=== PATIENT | male | born 1975 | race Caucasian/White ===

== ENCOUNTER 2022-09-11 16:52 | Inpatient (IN) ==
--- NOTE | 2022-09-11 17:07 | Emergency Department Note ---
SOB HPI General Chief Complaint: Shortness of Breath/Dyspnea Stated Complaint: SOB Time Seen by Provider: 09/11/22 17:04 Source: patient and EMS Mode of arrival: ambulatory Limitations: no limitations and physical limitation History of Present Illness HPI Narrative: Narrative: Patient is a 47-year-old male who comes into the emergency department today with chief complaint of shortness of breath and edema. Patient reports that he has had edema in the past and at one time was on diuretics but had stopped these a couple years ago. He does drink a sixpack of beer every day. He started noticing increased swelling and edema so he went to his primary care provider's office at [facility] and was prescribed diuretics 4 days ago. Patient reports that he started taking these last week but feels that the diuretics are not working and he has had increased edema where he is now feeling short of breath and significant swelling to the abdomen and scrotum. Patient reports that he is still voiding. He denies any chest pain. He has shortness of breath with lying flat. He denies any abdominal pain, nausea, vomiting, bleeding, melena, or hematochezia. He does report drinking 6 beers a day. He denies having any history of liver disease and has not been seen by a primary care very frequently in the past. He denies having any alcohol withdrawal symptoms. He reports having 2 beers today. Related Data Previous Rx's Medication Instructions Recorded albuterol sulfate 90 mcg/actuation 2 puff inhalation .q4-6h PRN 06/17/21 aerosol inhaler (ProAir HFA) cough, shortness of breath, wheezing #8.5 grams azithromycin 250 mg tablet See Rx Instructions PO Q24H #6 tabs 06/17/21 Allergies Allergy/AdvReac Type Severity Reaction Status Date / Time No Known Drug Allergies Allergy Verified 09/11/22 16:53 Review of Systems ROS ROS Narrative: Narrative: All systems ED: reviewed and negative except as stated. [facility] Narrative Patient History Narrative: Narrative: Medical/Surgical/Family History All Active Problems (Updated 09/11/22 @ 20:24 by ENRIQUE Richardson) SOB (shortness of breath) (Acute) D-dimer, elevated (Acute) Edema (Acute) Alcoholic liver disease, unspecified (Acute) Viral syndrome (Acute) Bronchitis (Acute) Medical History Bronchitis Viral syndrome Social History Smoking Status: Never smoker Exam Narrative Narrative: Narrative: General Limitations: no limitations and physical limitation General appearance: Present alert and obese Eye Eye: Present scleral icterus and periorbital swelling ENT ENT: Present normal oropharynx and mucous membranes moist Respiratory Respiratory: Present rales/crackles (all lobes); Absent respiratory distress Cardiovascular Cardiovascular: Present regular rate, normal rhythm, normal heart sounds and JVD Adbominal Abdominal: Present rigidity and ascites; Absent tenderness : Present other (Significant swelling to the scrotum and penis.) Extremities Extremities: Present other (4+ edema upper and lower extremities.) Neurological Neurological: Present alert and oriented X3 Psychiatric Psychiatric: Present normal affect and normal mood Skin Skin: Present warm (WNL), dry and normal color Course Vital Signs Vital signs: Vital Signs Temperature 96.5 F L 09/11/22 16:53 Pulse Rate 91 H 09/11/22 16:53 Respiratory Rate 33 H 09/11/22 16:53 Blood Pressure 154/100 09/11/22 16:53 Pulse Oximetry (%) 96 09/11/22 16:53 Oxygen Delivery Method 09/11/22 16:53 Temperature 96.5 F L 09/11/22 16:53 Pulse Rate 88 09/11/22 19:46 Respiratory Rate 13 09/11/22 20:01 Blood Pressure 140/106 09/11/22 20:01 Pulse Oximetry (%) 91 09/11/22 20:01 Oxygen Delivery Method 09/11/22 16:53 MDM MDM Narrative Medical decision making narrative: Narrative: Patient is a 47-year-old male who presents to the emergency department with significant edema. He does not have any hypoxia or requiring any O2, however is having orthopnea and when lying flat that he does feel short of breath and not able to lay down. He was started on diuretic by his primary care earlier this week but has failed outpatient therapy. Today proceeded with labs, chest x-ray, abdominal ultrasound. His CBC is consistent with alcohol induced anemia with hemoglobin 7.8 and hematocrit 25.2. MCV elevated at 102.9. His AST is elevated at 110 with significantly elevated bilirubin at 4.9. Alkaline phosphatase is 165. INR is 1.3. Patient's albumin level is 2.9 today. Meld score today is 19. Patient's proBNP is 264.2. Chest x-ray was read by radiologist and is read as no acute abnormality. The abdominal ultrasound is severely limited examination due to significant thickening of the abdominal wall and edema that does not show any evidence of ascites. Unable to visualize internal organs very well on the ultrasound. With work-up today it appears that the patient is having fluid overload most likely related to underlying liver disease which would be consistent with patient's alcoholism where he drinks 6 beers a day. He denies being in alcohol withdrawal in the past and does not appear to be in any sign of alcohol withdrawal today. Patient has failed outpatient therapy with oral diuretics and I feel would be appropriate to consider hospital admission with this patient for diuresis with close monitoring of intake and output. I was able to speak with Dr. Amor who is on today for the hospitalist at [facility]. He will accept patient for hospital admission at [facility]. Lab Data Result diagrams: 09/11/22 18:37 09/11/22 18:37 Labs: Lab Results 09/11/22 09/11/22 09/11/22 Range/Units 18:37 18:37 18:37 WBC 10.2 (4.5-11.0) K/mcL RBC 2.45 L (4.63-6.08) M/mcL Hgb 7.8 L (13.7-17.5) g/dL Hct 25.2 L (40.1-51.0) % MCV 102.9 H (80.0-100.0) fL MCH 31.8 (26.0-34.0) pg MCHC 31.0 (31.0-36.0) g/dL RDW 17.5 H (11.5-14.5) % Plt Count 200 (140-440) K/mcL MPV 10.0 (8.8-12.5) fL Immature Gran % (Auto) 0.6 H (0.0-0.5) % Neut % (Auto) 75.5 (38.0-78.0) % Lymph % (Auto) 9.9 L (15.5-49.0) % [place] % (Auto) 13.5 H (1.0-12.0) % Eos % (Auto) 0.3 (0.0-7.0) % Baso % (Auto) 0.2 (0.0-2.0) % Lymph # (Auto) 1.01 L (1.50-4.80) K/mcL [place] # (Auto) 1.38 H (0.10-0.90) K/mcL Eos # (Auto) 0.03 (0.00-0.70) K/mcL Baso # (Auto) 0.02 (0.00-0.30) K/mcL Immature Gran # 0.06 H (0.00-0.05) K/mcl Absolute Neutrophils 7.72 (1.80-8.00) K/mcL PT 17.0 H (11.9-14.5) sec INR 1.3 H (0.9-1.1) Sodium 132 L (133-145) mmol/L Potassium 3.8 (3.3-5.1) mmol/L Chloride 91 L (96-108) mmol/L Carbon Dioxide 31 H (22-30) mmol/L Anion Gap 10.0 (8.0-16.0) BUN 4 L (6-20) mg/dL Creatinine 0.5 L (0.7-1.2) mg/dL GFR Calculation 130 Glucose 105 (70-105) mg/dL Calcium 8.7 (8.6-10.4) mg/dL Total Bilirubin 4.9 H (0.1-1.0) mg/dL AST 110 H (<40) U/L ALT 37 (<40) U/L Alkaline Phosphatase 165 H (39-117) U/L NT-Pro-B Natriuret Pep 264.2 H (<125.0) pg/mL Total Protein 6.9 (5.9-8.4) gm/dL Albumin 2.9 L (3.2-5.2) gm/dL Globulin 4.0 H (2.2-3.7) gm/dL Albumin/Globulin Ratio 0.7 L (1.0-2.3) POC Troponin I (0.00-0.08) 09/11/22 Range/Units 18:41 WBC (4.5-11.0) K/mcL RBC (4.63-6.08) M/mcL Hgb (13.7-17.5) g/dL Hct (40.1-51.0) % MCV (80.0-100.0) fL MCH (26.0-34.0) pg MCHC (31.0-36.0) g/dL RDW (11.5-14.5) % Plt Count (140-440) K/mcL MPV (8.8-12.5) fL Immature Gran % (Auto) (0.0-0.5) % Neut % (Auto) (38.0-78.0) % Lymph % (Auto) (15.5-49.0) % [place] % (Auto) (1.0-12.0) % Eos % (Auto) (0.0-7.0) % Baso % (Auto) (0.0-2.0) % Lymph # (Auto) (1.50-4.80) K/mcL [place] # (Auto) (0.10-0.90) K/mcL Eos # (Auto) (0.00-0.70) K/mcL Baso # (Auto) (0.00-0.30) K/mcL Immature Gran # (0.00-0.05) K/mcl Absolute Neutrophils (1.80-8.00) K/mcL PT (11.9-14.5) sec INR (0.9-1.1) Sodium (133-145) mmol/L Potassium (3.3-5.1) mmol/L Chloride (96-108) mmol/L Carbon Dioxide (22-30) mmol/L Anion Gap (8.0-16.0) BUN (6-20) mg/dL Creatinine (0.7-1.2) mg/dL GFR Calculation Glucose (70-105) mg/dL Calcium (8.6-10.4) mg/dL Total Bilirubin (0.1-1.0) mg/dL AST (<40) U/L ALT (<40) U/L Alkaline Phosphatase (39-117) U/L NT-Pro-B Natriuret Pep (<125.0) pg/mL Total Protein (5.9-8.4) gm/dL Albumin (3.2-5.2) gm/dL Globulin (2.2-3.7) gm/dL Albumin/Globulin Ratio (1.0-2.3) POC Troponin I < 0.02 (0.00-0.08) Radiology Data Radiology results reviewed: Yes I reviewed the patient's radiology results. Radiology results narrative: Ordering Physician:Girma Payan Date of Service:09/11/22 Procedure(s):XR chest 2V HISTORY: Dyspnea FINDINGS: Heart is mildly enlarged but magnified by portable technique. There is no congestive heart failure or pleural effusion. Lungs are clear. There are several old healed bilateral rib fractures. Laterally in the lower thorax bilaterally. Associated with the right side rib fractures is chronic pleural thickening. Comparison with the prior exam from 06/27/21 shows resolution of previously seen right lower lobe infiltrate. The cardiomegaly is a stable finding. IMPRESSION: No acute abnormality Interpreted and Authenticated by: Kael Gavin 09/11/22 Ordering Physician:Girma Payan Date of Service:09/11/22 Procedure(s):US abdomen limited History: Abdominal distention, edema, possible ascites FINDINGS: The abdomen is distended and very taut. There is significant thickening of the abdominal wall. The patient is very obese. There is poor visualization of the intra-abdominal organs. No ascites is seen. No mass or abscess or fluid collection are seen. Only segments of the liver were identified and grossly normal. The pancreas, gallbladder and aorta are nonvisualized. Kidneys are extremely difficult to visualize but grossly normal. IMPRESSION: Severely limited exam without evidence of ascites Interpreted and Authenticated by: Kael Gvain 09/11/22 Discharge Plan Patient/Caregiver Discharge Instructions Pt seen by AIRPORT CLERK/PA only: No Clinical Impression: Edema, Alcoholic liver disease, unspecified Patient Disposition: Xfer As Inpt ([facility]) Follow up with: Lucius Morton DO [Primary Care Provider] - Prescriptions: No Action azithromycin 250 mg tablet See Rx Instructions PO Q24H Qty: 6 0RF Rx Instructions: Take 500mg today and 250mg daily for the next four days PO Q24H albuterol sulfate [ProAir HFA] 90 mcg/actuation HFA aerosol inhaler 2 puff inhalation .q4-6h PRN (Reason: cough, shortness of breath, wheezing) Qty: 8.5 0RF Rx Instructions: administer with spacer
--- NOTE | 2022-09-11 18:00 | XRay Report ---
HISTORY: Dyspnea FINDINGS: Heart is mildly enlarged but magnified by portable technique. There is no congestive heart failure or pleural effusion. Lungs are clear. There are several old healed bilateral rib fractures. Laterally in the lower thorax bilaterally. Associated with the right side rib fractures is chronic pleural thickening. Comparison with the prior exam from 06/27/21 shows resolution of previously seen right lower lobe infiltrate. The cardiomegaly is a stable finding. IMPRESSION: No acute abnormality Interpreted and Authenticated by: Kael Gavin 09/11/22
--- NOTE | 2022-09-11 18:57 | Ultrasound Report ---
History: Abdominal distention, edema, possible ascites FINDINGS: The abdomen is distended and very taut. There is significant thickening of the abdominal wall. The patient is very obese. There is poor visualization of the intra-abdominal organs. No ascites is seen. No mass or abscess or fluid collection are seen. Only segments of the liver were identified and grossly normal. The pancreas, gallbladder and aorta are nonvisualized. Kidneys are extremely difficult to visualize but grossly normal. IMPRESSION: Severely limited exam without evidence of ascites Interpreted and Authenticated by: Kael Gavin 09/11/22
[2022-09-11 19:21] LABS: Basophils # (Auto) 0.02 K/mcL (0.00-0.30); Basophils % (Auto) 0.2 % (0.0-2.0); Eosinophils # (Auto) 0.03 K/mcL (0.00-0.70); Eosinophils % (Auto) 0.3 % (0.0-7.0); Hematocrit 25.2 % (40.1-51.0); Hemoglobin 7.8 g/dL (13.7-17.5); Lymphocytes # (Auto) 1.01 K/mcL (1.50-4.80); Lymphocytes % (Auto) 9.9 % (15.5-49.0); Mean Cell Volume 102.9 fL (80.0-100.0); Monocytes # (Auto) 1.38 K/mcL (0.10-0.90); Monocytes % (Auto) 13.5 % (1.0-12.0); Neutrophils % (Auto) 75.5 % (38.0-78.0); Platelet Count 200 K/mcL (140-440); RBC 2.45 M/mcL (4.63-6.08); Red Cell Distribution Width 17.5 % (11.5-14.5); WBC 10.2 K/mcL (4.5-11.0)
[2022-09-11 19:41] LABS: INR 1.3 (0.9-1.1)
[2022-09-11 19:43] LABS: proBNP 264.2 pg/mL (<125.0)
[2022-09-11 19:45] LABS: ALT/SGPT 37 U/L (<40); AST/SGOT 110 U/L (<40); Albumin 2.9 gm/dL (3.2-5.2); Albumin/Globulin Ratio 0.7 (1.0-2.3); Alkaline Phosphatase 165 U/L (39-117); Bilirubin,Total 4.9 mg/dL (0.1-1.0); Blood Urea Nitrogen 4 mg/dL (6-20); Calcium 8.7 mg/dL (8.6-10.4); Carbon Dioxide 31 mmol/L (22-30); Chloride 91 mmol/L (96-108); Glomerular Filtration Rate 130; Glucose 105 mg/dL (70-105)
[2022-09-11] MEDS ORDERED: FUROSEMIDE 40 MG/4 ML VIAL IV ONE (19:58)
--- NOTE | 2022-09-11 20:45 | Internal Med History&Physical ---
HPI History of Present Illness Patient information: Note initiated : 09/11/22 at 8:34 pm Service Date, if different from initiated Date: [] Patient: Figueroa Montoya a 47 y/o M admitted on for Shortness of breath. Chief Complaint: [] History of present illness: Mr. Montoya is a 47 year old M Presents the ED with shortness of breath and increased swelling to his legs and abdomen scrotum. Patient last saw physician over a year ago for swelling and was started on Lasix and had an echocardiogram which per notes had good function. Patient has not seen his primary care doctor since that time. Patient is not on any Lasix but did go to [facility] care a week or so ago and was put on 20 mg daily of Lasix but his symptoms have been worsening. Complains of orthopnea as well as paroxysmal nocturnal dyspnea. He can hardly move now because of the significant swelling. His parents said that hard time getting him into a car because of house stiff his legs are from the swelling. Patient speech has changed because of the diffuse swelling that extends from his toes up to his face. His labs are significant for anemia which she had shown on past labs although it is worse. His sodium was mildly low at 132. His INR was 1.3 and albumin is 2.9 and bilirubin is 4.9 with a AST of 110 and normal ALT. Patient does drink a sixpack of beer daily denies liquor use. Abdominal ultrasound was done to assess the liver but unable to image given the severe obesity and edema. Patient's blood pressure is uncontrolled as well with a reading of 164/110. Patient swelling is been progressing over the past year but per patient is even worse over the past couple weeks. Review of Systems: Pertinent positives as above. Denies headache/fever/chills/nausea/vomiting/chest or abdominal pain/cough/diarrhea. Remaining 10 point review of system reviewed negative PFSH PFSH All Active Problems (Updated 09/11/22 @ 20:24 by ENRIQUE Richardson) SOB (shortness of breath) (Acute) D-dimer, elevated (Acute) Edema (Acute) Alcoholic liver disease, unspecified (Acute) Viral syndrome (Acute) Bronchitis (Acute) Medical History Bronchitis Viral syndrome Social History smoking status: Never smoker MEDS/ALLERGIES Home Medications and Allergies Home Medications Medication Instructions Recorded Confirmed Type albuterol sulfate 90 mcg/actuation 2 puff inhalation .q4-6h PRN 06/17/21 06/17/21 Rx aerosol inhaler (ProAir HFA) cough, shortness of breath, wheezing #8.5 grams Allergies Allergy/AdvReac Type Severity Reaction Status Date / Time No Known Drug Allergies Allergy Verified 09/11/22 16:53 EXAM Constitutional Vitals: Temp Pulse Resp BP Pulse Ox O2 Del Method 96.5 F L 90 19 164/110 93 09/11/22 16:53 09/11/22 20:16 09/11/22 20:16 09/11/22 20:16 09/11/22 20:16 09/11/22 16:53 Exam: General: Alert, Awake, No acute Distress, obese Eyes/N/T: EOMI, PERRL, Head/Neck: neck supple, normocephalic atraumatic CV: RRR, No murmurs, normal s1/s2 Pulm: Clear b/l, no wheezing/rhonchi/rales Abd: soft, nontender, +BS x4 Ext: no clubbing/cyanosis, Anasarca - b/l LE edema 4+, pitting edema from feet to face Neuro: Alert, no focal deficits, moves all extremities, CN 2-12 grossly intact, sensations intact b/l upper/lower Skin: warm/dry DATA Data Completed and Pending Labs: Labs from last 24 hours 09/11/22 09/11/22 09/11/22 18:41 18:37 18:37 WBC RBC Hgb Hct MCV MCH MCHC RDW Plt Count MPV Immature Gran % (Auto) Neut % (Auto) Lymph % (Auto) [place] % (Auto) Eos % (Auto) Baso % (Auto) Lymph # (Auto) [place] # (Auto) Eos # (Auto) Baso # (Auto) Immature Gran # Absolute Neutrophils PT INR Sodium 132 L Potassium 3.8 Chloride 91 L Carbon Dioxide 31 H Anion Gap 10.0 BUN 4 L Creatinine 0.5 L GFR Calculation 130 Glucose 105 Calcium 8.7 Total Bilirubin 4.9 H Direct Bilirubin Pending AST 110 H ALT 37 Alkaline Phosphatase 165 H NT-Pro-B Natriuret Pep 264.2 H Total Protein 6.9 Albumin 2.9 L Globulin 4.0 H Albumin/Globulin Ratio 0.7 L POC Troponin I < 0.02 09/11/22 09/11/22 18:37 18:37 WBC 10.2 RBC 2.45 L Hgb 7.8 L Hct 25.2 L MCV 102.9 H MCH 31.8 MCHC 31.0 RDW 17.5 H Plt Count 200 MPV 10.0 Immature Gran % (Auto) 0.6 H Neut % (Auto) 75.5 Lymph % (Auto) 9.9 L [place] % (Auto) 13.5 H Eos % (Auto) 0.3 Baso % (Auto) 0.2 Lymph # (Auto) 1.01 L [place] # (Auto) 1.38 H Eos # (Auto) 0.03 Baso # (Auto) 0.02 Immature Gran # 0.06 H Absolute Neutrophils 7.72 PT 17.0 H INR 1.3 H Sodium Potassium Chloride Carbon Dioxide Anion Gap BUN Creatinine GFR Calculation Glucose Calcium Total Bilirubin Direct Bilirubin AST ALT Alkaline Phosphatase NT-Pro-B Natriuret Pep Total Protein Albumin Globulin Albumin/Globulin Ratio POC Troponin I A/P Narrative A/P Narrative: A: *Anasarca, severe: Failed outpatient diuresis *Dyspnea: 2/2 above *Hypertensive urgency: *alcoholic Hepatitis: *Macrocytic anemia: Suspect 2/2 alcohol abuse *Hyperbilirubinemia: Suspect 2/2 liver disease *Coagulopathy: Suspect 2/2 liver disease *Hyponatremia: 2/2 volume overload *Alcohol abuse: *Tobacco abuse: *Morbid obesity: BMI 48 *probably ÁLVARO: P: -lasix gtt, -Monitor UOP/fluid balance, renal fxn -start ACEI, prn IV BP meds -anemia w/u -CIWA, vitamins -echo -f/u electrlytes -check tsh -Smoking cessation counseling >3 minutes -PT/OT - -ppx: Lovenox Time Spent With Patient Time: Total time spent is greater than 50% in coordination of care (as documented) at patient's floor/unit and/or counseling patient: Total time spent with greater than 50% in coordination of care (as documented) at patient's floor/unit and/or counseling patient:: Greater than 70 minutes
[2022-09-11 21:51] LABS: Appearance,Urine CLEAR (Clear); Bilirubin,Urine Negative (Negative); Color,Urine AMBER; Culture Indicated,Urine No; Glucose,Urine (UA) Negative (Negative); Ketones,Urine 5 mg/dL (Negative); Leukocyte Esterase,Urine Negative /uL (Negative); Mucus,Urine MOD /hpf; Nitrate,Urine Negative (Negative); Protein,Urine Negative (Negative); Specific Gravity,Urine 1.011 (1.000-1.035); Urine Hyaline Cast 5 /lph (0-2); Urine RBC 7 /hpf (0-3); Urine Squamous Epithelial Cell < 1 /hpf (0-4); Urine WBC 6 /hpf (0-4)
[2022-09-11] MEDS: 0.9 % SODIUM CHLORIDE 10 ML SYRINGE IV SCH (22:25)
[2022-09-11] MEDS ORDERED: LISINOPRIL 10 MG TABLET PO SCH (22:28)
[2022-09-11] MEDS ORDERED: IPRATROPIUM/ALBUTEROL 3 ML AMPUL.NEB NEB PRN (22:28)
[2022-09-11] MEDS ORDERED: chlordiazePOXIDE 25 MG CAPSULE PO PRN (22:28)
[2022-09-11] MEDS ORDERED: MAGNESIUM SULFATE 2 GM/50 ML BAG IV PRN (22:28)
[2022-09-11] MEDS ORDERED: SENNOSIDES 1 TABLET PO PRN (22:28)
[2022-09-11] MEDS ORDERED: FUROSEMIDE 250 MG in 0.9 % SODIUM CHLORIDE 225 ML IV SCH (22:28)
[2022-09-11] MEDS ORDERED: POTASSIUM CHLORIDE 40 MEQ in DEXTROSE 5% IN WATER 500 ML IV PRN (22:28)
[2022-09-11] MEDS ORDERED: THIAMINE 100 MG in 0.9 % SODIUM CHLORIDE 50 ML IV SCH (22:28)
[2022-09-11] MEDS ORDERED: POTASSIUM CHLORIDE 20 MEQ TABLET PO PRN ×2 (22:28)
[2022-09-11] MEDS ORDERED: hydrALAZINE 20 MG/ML VIAL IV PRN (22:28)
[2022-09-11] MEDS ORDERED: 0.9 % SODIUM CHLORIDE 10 ML SYRINGE IV SCH (22:28)
[2022-09-11] MEDS ORDERED: LABETALOL 5 MG/ML ML IV PRN (22:28)
[2022-09-11] MEDS ORDERED: LORazepam 2 MG/ML VIAL IV PRN (22:28)
[2022-09-11] MEDS ORDERED: POLYETHYLENE GLYCOL 3350 17 GM PACKET PO PRN (22:28)
[2022-09-11] MEDS ORDERED: ACETAMINOPHEN 325 MG TABLET PO PRN (22:28)
[2022-09-11] MEDS ORDERED: cloNIDine HCL 0.1 MG TABLET PO PRN (22:28)
[2022-09-11] MEDS ORDERED: SPIRONOLACTONE 25 MG TABLET PO ONE (22:28)
[2022-09-11] MEDS ORDERED: ONDANSETRON 4 MG/2 ML VIAL IV PRN (22:28)
[2022-09-11] MEDS ORDERED: LISINOPRIL 10 MG TABLET ONE (23:02)
[2022-09-11] MEDS ORDERED: ENOXAPARIN 40 MG/0.4 ML SYRINGE ONE (23:03)
[2022-09-11] MEDS ORDERED: SPIRONOLACTONE 25 MG TABLET ONE (23:03)
[2022-09-11] MEDS ORDERED: FUROSEMIDE 100 MG/10 ML VIAL IV ONE (23:03)
[2022-09-11 23:07] LABS: Iron 29 ug/dL (61-157); TIBC Calculation 176 ug/dl (228-428); Transferrin % Saturation 16 % (20-50)
[2022-09-11] MEDS: FOLIC ACID 1 MG TABLET PO SCH (23:19)
[2022-09-11] MEDS: DOCUSATE SODIUM 100 MG CAPSULE PO SCH (23:20)
[2022-09-11] MEDS: ENOXAPARIN 40 MG/0.4 ML SYRINGE SQ SCH (23:20)
[2022-09-11] MEDS: 0.9 % SODIUM CHLORIDE 250 ML IV SCH (23:22)
[2022-09-12 00:45] LABS: Ferritin 112.5 ng/mL (30.0-400.0)
[2022-09-12 01:54] LABS: Folate 3.4 ng/mL (4.2-19.9)
[2022-09-12] MEDS ORDERED: FUROSEMIDE 40 MG/4 ML VIAL IV ONE ×2 (03:23→03:47)
[2022-09-12] MEDS ORDERED: ALBUMIN HUMAN 12.5 GM/50 ML BAG IV ONE (03:26)
[2022-09-12] MEDS ORDERED: ALBUMIN HUMAN 50 ML IV ONE (03:48)
[2022-09-12] MEDS: 0.9 % SODIUM CHLORIDE 10 ML SYRINGE IV SCH ×2 (05:48→16:04)
[2022-09-12 07:23] LABS: INR 1.3 (0.9-1.1); Prothrombin Time 17.1 sec (11.9-14.5)
[2022-09-12 07:28] LABS: Basophils # (Auto) 0.01 K/mcL (0.00-0.30); Basophils % (Auto) 0.1 % (0.0-2.0); Eosinophils # (Auto) 0.01 K/mcL (0.00-0.70); Eosinophils % (Auto) 0.1 % (0.0-7.0); Hematocrit 23.3 % (40.1-51.0); Hemoglobin 7.2 g/dL (13.7-17.5); Lymphocytes # (Auto) 0.57 K/mcL (1.50-4.80); Lymphocytes % (Auto) 4.6 % (15.5-49.0); Mean Cell Volume 102.6 fL (80.0-100.0); Mean Corpuscular HGB Conc 30.9 g/dL (31.0-36.0); Mean Platelet Volume 10.2 fL (8.8-12.5); Monocytes % (Auto) 12.1 % (1.0-12.0); Neutrophils % (Auto) 82.5 % (38.0-78.0); Platelet Count 172 K/mcL (140-440); RBC 2.27 M/mcL (4.63-6.08); Red Cell Distribution Width 17.8 % (11.5-14.5); WBC 12.4 K/mcL (4.5-11.0)
[2022-09-12 07:42] LABS: ALT/SGPT 35 U/L (<40); AST/SGOT 96 U/L (<40); Albumin 2.7 gm/dL (3.2-5.2); Albumin/Globulin Ratio 0.8 (1.0-2.3); Alkaline Phosphatase 142 U/L (39-117); Bilirubin,Total 4.3 mg/dL (0.1-1.0); Blood Urea Nitrogen 6 mg/dL (6-20); Calcium 8.2 mg/dL (8.6-10.4); Carbon Dioxide 34 mmol/L (22-30); Chloride 92 mmol/L (96-108); Globulin 3.4 gm/dL (2.2-3.7); Glomerular Filtration Rate 114; Glucose 68 mg/dL (70-105); Lactate Dehydrogenase 289 U/L (135-225); Triglycerides 100 mg/dL (<150); Uric Acid 5.9 mg/dL (2.5-8.0)
--- NOTE | 2022-09-12 08:18 | Internal Med Progress Note ---
SUBJECTIVE Subjective Patient information: Note initiated : 09/12/22 at 8:05 am Service Date, if different from initiated Date: [] Patient: Figueroa Montoya a 47 y/o M admitted on 09/11/22 for Shortness of breath. Chief Complaint: [] Interval history: History of present illness: Mr. Montoya is a 47 year old M Presents the ED with shortness of breath and increased swelling to his legs and abdomen scrotum. Patient last saw physician over a year ago for swelling and was started on Lasix and had an echocardiogram which per notes had good function. Patient has not seen his primary care doctor since that time. Patient is not on any Lasix but did go to [facility] a week or so ago and was put on 20 mg daily of Lasix but his symptoms have been worsening. Complains of orthopnea as well as paroxysmal nocturnal dyspnea. He can hardly move now because of the significant swelling. His parents said that hard time getting him into a car because of house stiff his legs are from the swelling. Patient speech has changed because of the diffuse swelling that extends from his toes up to his face. His labs are significant for anemia which she had shown on past labs although it is worse. His sodium was mildly low at 132. His INR was 1.3 and albumin is 2.9 and bilirubin is 4.9 with a AST of 110 and normal ALT. Patient does drink a sixpack of beer daily denies liquor use. Abdominal ultrasound was done to assess the liver but unable to image given the severe obesity and edema. Patient's blood pressure is uncontrolled as well with a reading of 164/110. Patient swelling is been progressing over the past year but per patient is even worse over the past couple weeks. 09/12 Patient says he is feeling little bit better today less anxious. Still shortness of breath. No cough. His did have good urine output on Lasix drip initially and then it abruptly dropped which makes me concerned about the Costa positioning. Did have a bump in his white blood cell count today but no fevers. Blood pressure seems quite labile and I wonder if the measurements are accurate given his severe obesity and severe anasarca. Costa appears to be deficient and pending methylmalonic acid. Folate supplementation. Magnesium and phosphorus low and will replete Review of Systems: denies headache/fever/chills/nausea/vomiting/chest or abdominal pain/cough/di arrhea. Otherwise see above. Constitutional Vitals: Vital Signs Temp Pulse Resp BP Pulse Ox O2 Del Method O2 Flow Rate 97.1 F 95 H 27 H 104/59 98 2 09/12/22 00:05 09/12/22 05:11 09/12/22 05:11 09/12/22 04:08 09/12/22 05:11 09/12/22 04:07 09/12/22 00:05 Period Temp Pulse Resp BP Sys/Freire Pulse Ox O2 Del Method O2 Flow Rate Last 24 Hr 96.2 F-97.1 F 81-96 8-33 83-184/51-110 2-100 Nasal Cannula- Room Air 0-10 Intake and Output 09/11/22 09/12/22 09/12/22 19:59 03:59 11:59 Intake Total 198 50 Output Total 1250 10 Balance -1052 40 Weight 159.982 kg 159.574 kg Intake & Output: Intake & Output 09/11/22 09/12/22 09/12/22 19:59 03:59 11:59 Intake Total 198 50 Output Total 1250 10 Balance -1052 40 Weight 159.982 kg 159.574 kg Intake: IV 198 50 Sodium Chloride 0.9% 250 ml @ 82 20 mls/hr IV .[id number] GEETHA Rx#: [id number] Lasix 250 mg In Sodium Chloride 65 0.9% 225 ml @ 10 MG/HR 10 mls/ hr IV Q24H GEETHA Rx#:[id number] Vitamin B1 100 mg In Sodium 51 Chloride 0.9% 50 ml @ 50 mls/hr IV DAILY GEETHA Rx#:[id number] Oral 0 0 Output: Urine Catheter Amount 1250 10 Other: Urine Appearance Clear Urine Color [place] Urine Odor Normal Exam: General: Alert, Awake, No acute Distress, obese Eyes/N/T: EOMI, Head/Neck: neck supple, CV: RRR, No murmurs, Pulm: Clear b/l, no wheezing/rhonchi/rales Abd: soft, nontender, +BS x4 Ext: no clubbing/cyanosis, Anasarca - b/l LE edema 4+, pitting edema from feet to face Neuro: Alert, no focal deficits, moves all extremities, Skin: warm/dry OBJ DATA Labs CBC & Chem 7: 09/12/22 04:33 09/12/22 04:33 Labs: Abnormal Lab Results 09/12/22 09/12/22 09/12/22 07:35 04:33 04:33 WBC 12.4 H RBC 2.27 L Hgb 7.2 L Hct 23.3 L MCV 102.6 H MCHC 30.9 L RDW 17.8 H Immature Gran % (Auto) 0.6 H Neut % (Auto) 82.5 H Lymph % (Auto) 4.6 L Colbert % (Auto) 12.1 H Lymph # (Auto) 0.57 L Colbert # (Auto) 1.50 H Immature Gran # 0.07 H Absolute Neutrophils 10.22 H PT INR POC pH 7.27 L POC pCO2 83.3 H* POC pO2 75 L POC HCO3 38.4 H POC Total CO2 41.0 H POC ABG Base Excess 11.0 H Hgb O2 Saturation 92.0 L Sodium Chloride 92 L Carbon Dioxide 34 H BUN Creatinine Glucose 68 L Calcium 8.2 L Phosphorus 2.0 L Magnesium 1.4 L Iron TIBC Transferrin % Sat Total Bilirubin 4.3 H Direct Bilirubin 3.0 H GGT 81 H AST 96 H Alkaline Phosphatase 142 H Lactate Dehydrogenase 289 H NT-Pro-B Natriuret Pep Albumin 2.7 L Globulin Albumin/Globulin Ratio 0.8 L Vitamin B12 Folate Urine Ketones Urine Urobilinogen Urine RBC Urine WBC Hyaline Casts Urine Mucus 09/12/22 09/11/22 09/11/22 04:33 22:43 21:00 WBC RBC Hgb Hct MCV MCHC RDW Immature Gran % (Auto) Neut % (Auto) Lymph % (Auto) Colbert % (Auto) Lymph # (Auto) Colbert # (Auto) Immature Gran # Absolute Neutrophils PT 17.1 H INR 1.3 H POC pH POC pCO2 POC pO2 POC HCO3 POC Total CO2 POC ABG Base Excess Hgb O2 Saturation Sodium Chloride Carbon Dioxide BUN Creatinine Glucose Calcium Phosphorus Magnesium Iron TIBC Transferrin % Sat Total Bilirubin Direct Bilirubin GGT AST Alkaline Phosphatase Lactate Dehydrogenase NT-Pro-B Natriuret Pep Albumin Globulin Albumin/Globulin Ratio Vitamin B12 Folate 3.4 L Urine Ketones 5 A Urine Urobilinogen 4.0 A Urine RBC 7 H Urine WBC 6 H Hyaline Casts 5 H Urine Mucus Mod A 09/11/22 09/11/22 09/11/22 18:37 18:37 18:37 WBC RBC Hgb Hct MCV MCHC RDW Immature Gran % (Auto) Neut % (Auto) Lymph % (Auto) Colbert % (Auto) Lymph # (Auto) Colbert # (Auto) Immature Gran # Absolute Neutrophils PT INR POC pH POC pCO2 POC pO2 POC HCO3 POC Total CO2 POC ABG Base Excess Hgb O2 Saturation Sodium 132 L Chloride 91 L Carbon Dioxide 31 H BUN 4 L Creatinine 0.5 L Glucose Calcium Phosphorus Magnesium Iron 29 L TIBC 176 L Transferrin % Sat 16 L Total Bilirubin 4.9 H Direct Bilirubin 3.2 H GGT AST 110 H Alkaline Phosphatase 165 H Lactate Dehydrogenase NT-Pro-B Natriuret Pep 264.2 H Albumin 2.9 L Globulin 4.0 H Albumin/Globulin Ratio 0.7 L Vitamin B12 > 2000.0 H Folate Urine Ketones Urine Urobilinogen Urine RBC Urine WBC Hyaline Casts Urine Mucus 09/11/22 09/11/22 18:37 18:37 WBC RBC 2.45 L Hgb 7.8 L Hct 25.2 L MCV 102.9 H MCHC RDW 17.5 H Immature Gran % (Auto) 0.6 H Neut % (Auto) Lymph % (Auto) 9.9 L Colbert % (Auto) 13.5 H Lymph # (Auto) 1.01 L Colbert # (Auto) 1.38 H Immature Gran # 0.06 H Absolute Neutrophils PT 17.0 H INR 1.3 H POC pH POC pCO2 POC pO2 POC HCO3 POC Total CO2 POC ABG Base Excess Hgb O2 Saturation Sodium Chloride Carbon Dioxide BUN Creatinine Glucose Calcium Phosphorus Magnesium Iron TIBC Transferrin % Sat Total Bilirubin Direct Bilirubin GGT AST Alkaline Phosphatase Lactate Dehydrogenase NT-Pro-B Natriuret Pep Albumin Globulin Albumin/Globulin Ratio Vitamin B12 Folate Urine Ketones Urine Urobilinogen Urine RBC Urine WBC Hyaline Casts Urine Mucus Meds: Medications Acetaminophen (Acetaminophen 325 Mg Tablet) 650 mg PO Q6HP PRN; Protocol PRN Reason: Per Pain Protocol/Fever > 101 Albuterol/Ipratropium (Ipratropium/Albuterol 3 Ml Ampul.Neb) 3 ml NEB Q4HP PRN PRN Reason: Shortness Of Breath Chlordiazepoxide HCl (Chlordiazepoxide 25 Mg Capsule) 25 mg PO UD PRN; Protocol PRN Reason: Alcohol Withdrawal/Assess CIWA Clonidine HCl (Clonidine Hcl 0.1 Mg Tablet) 0.1 mg PO Q4HP PRN PRN Reason: ALC Docusate Sodium (Docusate Sodium 100 Mg Capsule) 100 mg PO BID [facility] Last Admin: 09/11/22 23:20 Dose: Not Given Enoxaparin Sodium (Enoxaparin 40 Mg/0.4 Ml Syringe) 40 mg SQ BID [facility] Last Admin: 09/11/22 23:20 Dose: 40 mg Folic Acid (Folic Acid 1 Mg Tablet) 1 mg PO DAILY [facility] Last Admin: 09/11/22 23:19 Dose: 1 mg Hydralazine HCl (Hydralazine 20 Mg/Ml Vial) 0 mg IV Q2HP PRN PRN Reason: Hypertension Potassium Chloride 40 meq/ (Dextrose) 520 mls @ 130 mls/hr IV UD PRN PRN Reason: Potassium < 3 Magnesium Sulfate (Magnesium Sulfate) 2 gm in 50 mls @ 50 mls/hr IV UD PRN PRN Reason: Magnesium </= 1.6 Furosemide 250 mg/ Sodium (Chloride) 250 mls @ 10 mls/hr IV Q24H [facility]; Protocol Last Titration: 09/12/22 03:27 Dose: 0 mg/hr, 0 mls/hr Sodium Chloride (Sodium Chloride 0.9%) 250 mls @ 20 mls/hr IV .[id number] [facility] Last Infusion: 09/12/22 03:27 Dose: 0 mls/hr Thiamine HCl 100 mg/ Sodium (Chloride) 51 mls @ 50 mls/hr IV 1200 GEETHA Iron Carb/Multivit/Berks/Folic Acid (Multivit,Ther Iron,Ca,Fa & Min 1 Tablet) 1 tab PO DAILY [facility] Labetalol HCl (Labetalol 5 Mg/Ml Ml) 0 mg IV Q2HP PRN PRN Reason: Hypertension Lisinopril (Lisinopril 10 Mg Tablet) 10 mg PO DAILY [facility] Last Admin: 09/11/22 23:19 Dose: 10 mg Lorazepam (Lorazepam 2 Mg/Ml Vial) 0 mg IV UD PRN; Protocol PRN Reason: Alcohol Withdrawal/Assess CIWA Ondansetron HCl (Ondansetron 4 Mg/2 Ml Vial) 4 mg IV Q4HP PRN PRN Reason: Nausea And Vomiting Polyethylene Glycol (Polyethylene Glycol 3350 17 Gm Packet) 17 gm PO DAILYP PRN PRN Reason: Constipation Potassium Chloride (Potassium Chloride 20 Meq Tablet) 40 meq PO UD PRN PRN Reason: Potssium is 3-3.5 Potassium Chloride (Potassium Chloride 20 Meq Tablet) 40 meq PO UD PRN PRN Reason: Potassium < 3 Senna (Sennosides 1 Tablet) 2 tab PO DAILYP PRN PRN Reason: Constipation Sodium Chloride (0.9 % Sodium Chloride 10 Ml Syringe) 10 ml IV Q8 GEETHA Last Admin: 09/12/22 05:48 Dose: 10 ml A/P Narrative A/P Narrative: A: *Anasarca, severe: Failed outpatient diuresis -UOP initially good then dropped, ?costa malpositioned *Dyspnea: 2/2 above *Hypertensive urgency: -labile and low this AM, ?accuracy of measurements given morbid obesity and anasarca *alcoholic Hepatitis: *Macrocytic anemia w/Folate deficiency: Suspect 2/2 alcohol abuse *Hyperbilirubinemia: Suspect 2/2 liver disease *Coagulopathy: Suspect 2/2 liver disease *Hyponatremia: 2/2 volume overload, improving *Alcohol abuse: *Tobacco abuse: *Morbid obesity: BMI 48 *probably ÁLVARO: *Hypomagnesemia/Hypophosphatemia: P: -lasix gtt once costa sorted out -Monitor UOP/fluid balance, renal fxn -start ACEI depending on BP, prn IV BP meds -CIWA, vitamins -echo -ct imaging -f/u electrlytes and replace -folate supp, mma pending -Smoking/etoh cessation counseling -PT/OT -CM for placement needs -ppx: Lovenox Time Spent With Patient Time: Total time spent is greater than 50% in coordination of care (as documented) at patient's floor/unit and/or counseling patient: Total time spent with greater than 50% in coordination of care (as documented) at patient's floor/unit and/or counseling patient:: 35 - 50 minutes
[2022-09-12] MEDS ORDERED: NEUTRA PHOS 1 PACKET PO SCH (08:20)
[2022-09-12] MEDS ORDERED: MAGNESIUM SULFATE 2 GM/50 ML BAG IV SCH (08:20)
[2022-09-12] MEDS ORDERED: PHOSPHORUS 250 MG TABLET PO SCH (08:20)
[2022-09-12] MEDS: DOCUSATE SODIUM 100 MG CAPSULE PO SCH (08:40)
[2022-09-12] MEDS: ENOXAPARIN 40 MG/0.4 ML SYRINGE SQ SCH (08:40)
[2022-09-12] MEDS ORDERED: MULTIVIT,THER IRON,CA,FA & MIN 1 TABLET PO SCH (09:00)
[2022-09-12] MEDS ORDERED: FOLIC ACID 1 MG TABLET PO SCH (09:00)
[2022-09-12 09:06] LABS: Anisocytosis 1+ (None Seen); Band Neutrophils % 5 % (0-10); Hypochromasia 2+ (None Seen); Lymphocytes % 5 % (15-49); Monocytes % (Manual) 13 % (1-12); Platelet Estimate NORMAL (Normal); Polychromasia 1+ (None Seen); RBC Morphology ABNORMAL (Normal); Reactive Lymphocytes 1 % (0-2); Segmented Neutrophils % 76 % (38-78)
[2022-09-12] MEDS ORDERED: LORazepam 2 MG/ML VIAL IV SCH (09:30)
[2022-09-12] MEDS ORDERED: IOPAMIDOL 100 ML BOTTLE IV ONE (09:52)
--- NOTE | 2022-09-12 10:12 | Cat Scan Report ---
History: Elevated bilirubin level, possible cirrhosis, evaluate for malpositioned Lockett catheter TECHNIQUE: Following injection of intravenous nonionic contrast the patient was imaged during the portal venous phase from above the diaphragm through the symphysis pubis. Sagittal and coronal reformats were created. The radiation exposure was limited using dose reduction technology. FINDINGS: There are small bilateral layering pleural effusions. There is consolidation in the basilar segments of both lower lobes. The pleural effusions have diminished since the prior chest CT done on 06/27/21. The consolidation is chronic or recurrent and could be atelectasis or pneumonia. The liver is very heterogeneous and there is diffuse fatty infiltration. The capsule is multilobulated. There are numerous varices. There are also ill-defined masslike lesions scattered throughout the liver which measure up to 4.5 cm in size. The nodularity of the liver has become more conspicuous since 06/27/21. The spleen is normal in size and homogeneous. No ascites is present. The gallbladder is normal with no calcified stones or thickening of the wall. The intra and extrahepatic bile ducts are normal in caliber. There is no evidence of a mass or inflammation in the pancreas. The adrenals are normal. The right kidney is normal. Patient has a pelvic left kidney. It is located in the midline of the upper pelvis, inferior to the aortic bifurcation. No abnormality is seen within the pelvic kidney. There is a Lockett catheter located centrally within the decompressed urinary bladder. There is gas in the bladder due to the Lockett. There is no evidence of hemorrhage or edema around the bladder. There is moderate submucosal deposition of fat in the cecum and ascending colon. This segment is not dilated and the surrounding fat is noninflamed. The remainder of the large intestine is normal. Small intestine is normal without evidence of obstruction or inflammation. No adenopathy is present. There is moderate edema in the subcutaneous tissues throughout the abdomen and pelvis extending into the legs. IMPRESSION: Cirrhotic liver. Malignant transformation is suspected. Portal hypertension with multiple varices but no ascites Atelectasis or pneumonia in both lung bases Normal gallbladder and nondilated bile ducts Left-sided pelvic kidney Submucosal fat in the right side of the colon. This may be seen with chronic inflammation such as ulcerative colitis. Lockett catheter normally located within the bladder Interpreted and Authenticated by: Kael Gavin 09/12/22
--- NOTE | 2022-09-12 11:14 | Event Note ---
Event Note Event Note: This morning while trying to obtain an echocardiogram patient's pulse started fluctuating between 40 and 100s and then patient passed out. No pulses appreciated no respirations appreciated. CPR initiated. Multiple rounds of epinephrine were given as well as bicarb, what appeared to be a brief episode of V. tach and amnio was given. But otherwise the pulse remained PEA. Obtaining airway was extremely difficult with several attempts before success with bougie. Prior to intubation his pulse was becoming more bradycardic and remained PEA and appeared to be trending towards asystole. After the intubation with improvement in his oxygenation his heart rate improved however he remained PEA. CPR was continued for 34 minutes and time of was called at 1057. Family present in the hallway.
[2022-09-12] MEDS ORDERED: THIAMINE 100 MG in 0.9 % SODIUM CHLORIDE 50 ML IV SCH (12:00)
--- NOTE | 2022-09-12 12:05 | Death Note ---
Discharge Sum: Prov Provider Patient information: Note initiated : 09/12/22 at 12:00 pm Service Date, if different from initiated Date: [] Patient: Figueroa Montoya a 47 y/o M admitted on 09/11/22 for Shortness of breath. Chief Complaint: [] Primary care physician: Lucius Morton DO Consults: 09/11/22 Consult to Physician [CONS] Stat Comment: Consulting Provider: Kunal Amor Reason For Exam: Physician to Consult Discharge Sum: Summary Date and Time Date of admission: 09/11/22 22:20 Date of : 09/12/22 Time of : 10:57 Summary Details: History of present illness: Mr. Montoya is a 47 year old M Presents the ED with shortness of breath and increased swelling to his legs and abdomen scrotum. Patient last saw physician over a year ago for swelling and was started on Lasix and had an echocardiogram which per notes had good function. Patient has not seen his primary care doctor since that time. Patient is not on any Lasix but [facility] so [facility] and was put on 20 mg daily of Lasix but his symptoms have been worsening. Complains of orthopnea as well as paroxysmal nocturnal dyspnea. He can hardly move now because of the significant swelling. His parents said that hard time getting him into a car because of house stiff his legs are from the swelling. Patient speech has changed because of the diffuse swelling that extends from his toes up to his face. His labs are significant for anemia which she had shown on past labs although it is worse. His sodium was mildly low at 132. His INR was 1.3 and albumin is 2.9 and bilirubin is 4.9 with a AST of 110 and normal ALT. Patient does drink a sixpack of beer daily denies liquor use. Abdominal ultrasound was done to assess the liver but unable to image given the severe obesity and edema. Patient's blood pressure is uncontrolled as well with a reading of 164/110. Patient swelling is been progressing over the past year but per patient is even worse over the past couple weeks. 09/12 Patient says he is feeling little bit better today less anxious. Still shortness of breath. No cough. His did have good urine output on Lasix drip initially and then it abruptly dropped which makes me concerned about the Costa positioning. Did have a bump in his white blood cell count today but no fevers. Blood pressure seems quite labile and I wonder if the measurements are accurate given his severe obesity and severe anasarca. Costa appears to be deficient and pending methylmalonic acid. Folate supplementation. Magnesium and phosphorus low and will replete I did lay him flat to see if he would tolerate a brief period in the supine position for the CT and he did tolerated it well observing him in the room. CT abdomen pelvis showing cirrhotic liver as well as numerous varices as well as masslike lesions up to 4.5cm suspicious for malignant transformation. Portal hypertension, no ascites noted. Costa catheter within the bladder. Patient had sudden decrease in urine output this morning and the Costa flushed well and appeared in position per imaging. This morning while trying to obtain an echocardiogram patient's pulse started fluctuating between 40 and 100s and then patient passed out. No pulses appreciated no respirations appreciated. CPR initiated. Multiple rounds of epinephrine were given as well as bicarb, what appeared to be a brief episode of V. tach and amnio was given. But otherwise the pulse remained PEA. Obtaining airway was extremely difficult with several attempts before success with bougie. Prior to intubation his pulse was becoming more bradycardic and remained PEA and appeared to be trending towards asystole. After the intubation with improvement in his oxygenation his heart rate improved however he remained PEA. CPR was continued for 34 minutes and time of was called at 1057. Family present in the hallway. My suspicion is that this was a respiratory failure from airway obstruction from massive and diffuse tissue edema less likely tracheal compromise A: *Likely respiratory failure from obstruction due to massive tissue edema *Anasarca, severe: Failed outpatient diuresis -UOP initially good then dropped, ?costa malpositioned *Dyspnea: 2/2 above *Hypertensive urgency: -labile and low this AM, ?accuracy of measurements given morbid obesity and anasarca *alcoholic Hepatitis: *Macrocytic anemia w/Folate deficiency: Suspect 2/2 alcohol abuse *Hyperbilirubinemia: Suspect 2/2 liver disease *Coagulopathy: Suspect 2/2 liver disease *Hyponatremia: 2/2 volume overload, improving *Alcohol abuse: *Tobacco abuse: *Morbid obesity: BMI 48 *probably ÁLVARO: *Hypomagnesemia/Hypophosphatemia: Additional Data Attending physician: Kunal Amor
[2022-09-12] MEDS ORDERED: EPINEPHrine 1 MG/10 ML (1:10,000) SYRINGE IV ONE (15:40)
[2022-09-12] MEDS ORDERED: SODIUM BICARBONATE ADULT 50 MEQ/50 ML SYRINGE IV ONE (15:40)
[2022-09-12] MEDS ORDERED: ROCURONIUM 10 MG/ML ML IV ONE (15:40)
[2022-09-12] MEDS ORDERED: AMIODARONE 150 MG/3 ML VIAL IV ONE (15:40)
[2022-09-12] MEDS ORDERED: ETOMIDATE 20 MG/10 ML VIAL IV ONE (15:40)
[2022-09-12] MEDS: FOLIC ACID 1 MG TABLET PO SCH (16:03)
[2022-09-12] MEDS: 0.9 % SODIUM CHLORIDE 250 ML IV SCH (16:04)
--- NOTE | 2022-09-13 08:35 | EKG ---
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
== END 2022-09-12 23:26 | disposition expired | DRG 189 ==
LOC: ED 16:52 → ICU 22:20
PROVIDERS: ADMIT Internal Medicine; ATTEND Internal Medicine